=== PATIENT | male | born 1995 | race Caucasian/White ===

== ENCOUNTER 2018-02-01 18:30 | Emergency (ER) | payer OTHER ==
[2018-02-01] MEDS: PERCOCET 5MG/325MG TAB PO (19:30)
[2018-02-01] MEDS: NAPROXEN 250 MG TAB PO (20:22)
[2018-02-01] MEDS: METHOCARBAMOL 750 MG TAB PO (20:22)
== END 2018-02-01 20:27 | disposition home or self-care (01) ==
LOC: M ED 18:30
DX: M54.5 Low back pain (principal)
CPT/HCPCS: 72131